=== PATIENT | female | born 1990 | race Caucasian/White ===

== ENCOUNTER → 2018-01-04 | Outpatient (CLI) | payer OTHER | LOC: FIMAGING 10:27 | PROVIDERS: ATTEND Physician Assistant Medical | DX: R51 Headache (principal); R41.89 Other symptoms and signs involving cognitive functions and awareness ==

== ENCOUNTER → 2018-01-13 | Outpatient (CLI) | payer OTHER ==
--- NOTE | 2018-01-13 13:58 | CPEEG ---
[f rep st] ELECTROENCEPHALOGRAM DATE OF STUDY: 01/13/2018 INTERPRETATION: Normal EEG during wakefulness and sleep. There were no potentially epileptogenic abnormalities present during recording. REPORT: This EEG contains 10 Hz alpha to the posterior head regions. There was no abnormal activation at rest, hyperventilation or photic stimulation. The patient became drowsy and fell asleep during the study. There was no abnormal activation during drowsiness, sleep, or during times of arousal. /[id number]/MODL MTDD
== END ==
LOC: FCPNEURO 09:43
PROVIDERS: ATTEND Physician Assistant Medical
DX: R51 Headache (principal); R41.89 Other symptoms and signs involving cognitive functions and awareness